=== PATIENT | female | born 2000 | race Caucasian/White ===

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

== ENCOUNTER 2020-04-13 11:56 | Emergency (ER) | payer OTHER, SELFPAY ==
[2020-04-13 12:05] VITALS: BP 121/68; PULSE 77; RESP 14; TEMP 36.6; O2SAT 100
--- NOTE | 2020-04-13 12:16 | ED.URI ---
HPI - URI/Sore Throat General Chief Complaint: Upper Respiratory Infection Stated Complaint: Sinus Infection Source: patient Mode of arrival: ambulatory Limitations: no limitations History of Present Illness HPI Narrative: Patient is a 19-year-old female who presents complaining of upper respiratory symptoms. She reports sinus congestion, rhinorrhea, sore throat and bilateral ear pain x3 days. She does she denies Covid exposure and reports she does not have risks for exposure. She denies taking [id number] medications for pain. She reports a history of sinusitis. MD elicited complaint: sore throat, rhinorrhea, nasal congestion and sinus pain Related Data Allergies Allergy/AdvReac Type Severity Reaction Status Date / Time No Known Allergies Allergy Verified 04/13/20 12:12 Review of Systems Review of Systems: Narrative: CONSTITUTIONAL: Denies fever, chills, or sweats. EYES: Denies visual changes, redness, or discharge. ENT: Reports rhinorrhea, congestion, sore throat, and otalgia. CARDIOVASCULAR: Denies chest pain, palpitations, or edema. RESPIRATORY: Denies cough or dyspnea. GASTROINTESTINAL: Denies abdominal pain, nausea, vomiting, or diarrhea. GENITOURINARY: Denies dysuria or hematuria. SKIN: Denies rash or itching. MUSCULOSKELETAL: Denies back pain, joint pain, or myalgia. NEUROLOGIC: Denies headache, numbness, dizziness, or weakness. PSYCHIATRIC: Denies anxiety or depression. PMFSH Past Medical History Medical History Fracture Seasonal allergies Sinusitis Surgical History Surgical History No significant past surgical history Family History Family History (Updated 04/13/20 @ 12:21 by EFREM Hassan) Other No significant family history Social History Social History (Updated 04/13/20 @ 12:21 by EFREM Hassan) Smoking status: Never smoker Substance use: never Living arrangements: with family Exam Narrative: Exam Narrative: GENERAL: Well-appearing, well-nourished, and in no acute distress. HEAD: Normocephalic, atraumatic. EYES: EOMI. No redness or drainage. Conjunctiva are normal. ENT: Mucous membranes pink and moist. Nares clear. Positive rhinorrhea. Left TM cloudy, full, mildly injected. Throat erythema. Uvula midline. NECK: AROM. Supple. No lymphadenopathy. CHEST: No respiratory distress. MUSCULOSKELETAL: No bony tenderness. EXTREMITIES: Normal range of motion. SKIN: Warm, dry, no rash. NEURO: No focal deficits. Alert and oriented x3. Gait steady. PSYCH: Normal affect. No signs of depression or anxiety. Course Vital Signs Vital signs: Vital Signs Temperature 36.6 C 04/13/20 12:05 Pulse Rate 77 04/13/20 12:05 Respiratory Rate 14 04/13/20 12:05 Blood Pressure 121/68 04/13/20 12:05 Pulse Oximetry 100 04/13/20 12:05 Temperature 36.6 C 04/13/20 12:05 Pulse Rate 77 04/13/20 12:05 Respiratory Rate 14 04/13/20 12:05 Blood Pressure 121/68 04/13/20 12:05 Pulse Oximetry 100 04/13/20 12:05 Reviewed MDM - URI/Sore Throat MDM Narrative Medical decision making narrative: Patient most likely has sinusitis. Patient also showing signs of otitis media and pharyngitis. Discussed with patient course of illness. Discussed follow-up care. Patient is stable for discharge home with outpatient follow-up as needed. Differential Diagnosis Differential diagnosis: Likely upper respiratory infection, otitis media, sinusitis, viral infection and pharyngitis Medical Records Attestation: I reviewed the patient's medical records. Critical Care Time Critical Care Time Critical Care Time: No Discharge Plan Discharge Clinical Impression: Upper respiratory infection, Sinusitis, Pharyngitis Patient Disposition: Home, Self-Care Condition: Stable Instructions: Antibiotic Form Additional Instructions: Take antibiotics as di
== END 2020-04-13 12:31 | disposition home or self-care (01) ==
PROVIDERS: Emergency Provider Nurse Practitioner; PCP Family Medicine
DX: J06.9 Acute upper respiratory infection, unspecified (principal); J32.9 Chronic sinusitis, unspecified; J02.9 Acute pharyngitis, unspecified
CPT/HCPCS: 99213; G0463

== ENCOUNTER 2021-05-13 11:40 | Emergency (ER) | payer OTHER, SELFPAY ==
--- NOTE | ~2021-05-13 | XR_ITS ---
EXAMINATION: XR hand RT min 3V DATE: 05/13/2021 12:01 INDICATION: Swelling at the first metacarpophalangeal joint TECHNIQUE: Posteroanterior, oblique and lateral views of the right hand were obtained. COMPARISON: None. FINDINGS: Alignment is normal. No fracture. Joint spaces are normal. No cortical erosions or periosteal reactio n. Soft tissues are unremarkable with no soft tissue gas or radiopaque foreign bodies. IMPRESSION: 1. Negative left hand radiographs. Reviewed, dictated and finalized at location A. [facility]
[2021-05-13 11:48] VITALS: BP 125/73; PULSE 70; RESP 14; TEMP 37.5; O2SAT 100
--- NOTE | 2021-05-13 12:29 | ED.GENADULT ---
HPI - General Adult General Chief complaint: Extremity Injury, Upper Stated complaint: right hand swollen and painful Source: patient Mode of arrival: ambulatory Limitations: no limitations History of Present Illness HPI narrative: Patient presents for evaluation of pain in the right hand since last night. She cannot identify any precipitating cause or injury. Pain is constant, described as dull at rest and sharp with movement. She rates her pain 6 out of 10 in severity. No loss of range of motion. No paresthesias. No redness or drainage. She has taken ibuprofen with some improvement of her symptoms thereafter. She is right-hand dominant. No additional complaints or concerns Related Data Home Medications Medication Instructions Recorded Confirmed No Home Medications 05/13/21 05/13/21 Allergies Allergy/AdvReac Type Severity Reaction Status Date / Time No Known Allergies Allergy Verified 05/13/21 12:10 Review of Systems Review of Systems: CONSTITUTIONAL: Denies fever, chills, or sweats. EYES: Denies visual changes, redness, or discharge. ENT: Denies rhinorrhea, congestion, sore throat, or otalgia. CARDIOVASCULAR: Denies chest pain, palpitations, or edema. RESPIRATORY: Denies cough or dyspnea. GASTROINTESTINAL: Denies abdominal pain, nausea, vomiting, or diarrhea. GENITOURINARY: Denies dysuria or hematuria. SKIN: Denies rash or itching. MUSCULOSKELETAL: Reports pain and swelling in right hand NEUROLOGIC: Denies headache, numbness, dizziness, or weakness. PSYCHIATRIC: Denies anxiety or depression. [facility] Past Medical History Medical History Fracture Seasonal allergies Sinusitis Surgical History Surgical History No significant past surgical history Family History Family History Other No significant family history Social History Social History Smoking status: Never smoker Alcohol intake: never Substance use: never Living arrangements: with family Gender identity (if verbalized by the patient): Female Sexual Orientation (if Verbalized by the Patient): Straight or Heterosexual Spiritual care concerns: No Exam Narrative: GENERAL: Well-appearing, well-nourished, and in no acute distress. HEAD: Normocephalic, atraumatic. EYES: PERRLA and EOMI. ENT: Nares clear, no rhinorrhea or epistaxis. Mucous membranes moist. Oropharynx without tonsillar hypertrophy exudate or other lesions. Bilateral TMs pearly kearns nonbulging NECK: Supple. No adenopathy or masses. No carotid bruits or JVD CHEST: Clear to auscultation. No respiratory distress. No wheezes rales or rhonchi HEART: Regular rate and rhythm. No murmur heard. Normal peripheral pulses. ABDOMEN: Soft, nontender, nondistended, normal active bowel sounds. EXTREMITIES: Normal range of motion. 5 out of 5 handgrip strength bilaterally. There is tenderness over metacarpals of first and second digits of right hand. I do not appreciate any swelling or deformity present. SKIN: Warm, dry, no rash. NEURO: No focal deficits. Alert and oriented x3. PSYCH: Normal mood and affect. Course Course Emergency Course: This is a 20-year-old female who presented with complaints of right hand pain. I do not appreciate any redness or warmth to suggest cellulitis. I do not appreciate any swelling. There is mild tenderness over first and second metacarpals of the right hand without deformity. She has full range of motion. Seem consistent with tendinitis. Advised on RICE therapy. Ibuprofen for pain. Provided with salvador wrap. Follow-up outpatient for further evaluation and treatment and return for worsening symptoms. Patient in agreement with plan of care. Level of Care: Express Care Visit Vital Signs Vital signs: Vital Sig
== END 2021-05-13 12:53 | disposition home or self-care (01) ==
PROVIDERS: Emergency Provider Nurse Practitioner; PCP Family Medicine
DX: M79.641 Pain in right hand (principal)
CPT/HCPCS: 73130; 99213; G0463

== ENCOUNTER 2021-05-20 17:25 | Emergency (ER) | payer OTHER, SELFPAY ==
[2021-05-20 17:32] VITALS: BP 124/77; PULSE 102; RESP 16; TEMP 38.2; O2SAT 99
--- NOTE | 2021-05-20 17:40 | ED.URI ---
HPI - URI/Sore Throat General Chief Complaint: Upper Respiratory Infection Stated Complaint: Sore Throat Time Seen by Provider: 05/20/21 17:45 Source: patient and RN notes reviewed Mode of arrival: ambulatory Limitations: no limitations History of Present Illness HPI Narrative: 20-year-old female presents concern for sore throat, nasal congestion, rhinorrhea, ear pain, body aches, chills, sweats, fever. Reports taking ibuprofen and sinus medication. She requested a strep test, she refuses a Covid test. She is not been vaccinated for Covid. MD elicited complaint: cough and sore throat Related Data Home Medications Medication Instructions Recorded Confirmed No Home Medications 05/13/21 05/20/21 Allergies Allergy/AdvReac Type Severity Reaction Status Date / Time No Known Allergies Allergy Verified 05/20/21 17:29 Review of Systems Review of Systems: CONSTITUTIONAL: Reports malaise, chills, sweats, or fever. EYES: Denies visual changes, redness, or discharge. ENT: Reports rhinorrhea, congestion, otalgia and sore throat. CARDIOVASCULAR: Denies chest pain, palpitations, or edema. RESPIRATORY: Reports cough. Denies dyspnea. GASTROINTESTINAL: Denies abdominal pain, nausea, vomiting, diarrhea SKIN: Denies rash or itching. MUSCULOSKELETAL: Reports myalgia. NEUROLOGIC: Reports headache. All systems reviewed & are unremarkable except as noted in HPI and below PMFSH Past Medical History Medical History Fracture Seasonal allergies Sinusitis Surgical History Surgical History No significant past surgical history Family History Family History Other No significant family history Social History Social History (Reviewed 05/13/21 @ 12:30 by Tacos Galloway [facility], ) Smoking status: Never smoker Alcohol intake: never Substance use: never Gender identity (if verbalized by the patient): Female Sexual Orientation (if Verbalized by the Patient): Straight or Heterosexual Spiritual care concerns: No Comments At time of signature, agree with nursing past medical, surgical, social and family history. There is no relevant family history pertinent to the presenting complaint Exam Narrative: GENERAL: Nontoxic-appearing, well-nourished, and in no acute distress. HEAD: Normocephalic EYES: PERRLA, conjunctivae clear ENT: Nares clear, clear discharge. Mucous membranes moist. TM pearly kearns with dull light reflex bilaterally; no tragal tenderness. Oropharynx erythematous without lesions. Tonsils not enlarged and without exudate, no drooling, no hoarseness, no trismus, uvula midline. NECK: Supple. No lymphadenopathy CHEST: Clear to auscultation, breath sounds equal. No wheezing, rhonchi, rales, or stridor. No respiratory distress, speaks in full sentences. HEART: Regular rate and rhythm. No murmur heard. SKIN: Warm, dry, no rash. NEURO: Alert and oriented x3. PSYCH: Normal mood and affect Course Course Emergency Course: Mended Covid test patient, patient refuses Covid test. Advised patient that her symptoms are likely contagious and she needs to remain home and quarantine until symptoms resolve Patient is aware of diagnosis, understands and agrees to treatment plan. Anticipatory guidance given. Patient agrees to follow-up as directed and is aware of reasons to seek care at the emergency department. Portions of this record may have been created with voice recognition software Level of Care: Express Care Visit Vital Signs Vital signs: Vital Signs Temperature 100.7 F H 05/20/21 17:32 Pulse Rate 102 H 05/20/21 17:32 Respiratory Rate 16 05/20/21 17:32 Blood Pressure 124/77 05/20/21 17:32 Pulse Oximetry 99 05/20/21 17:32 Temperature 100.7 F H 05/20/21 17:32 Pulse Rate 102 H 05/20/21 17:32 Respiratory Rate 16
== END 2021-05-20 18:02 | disposition home or self-care (01) ==
PROVIDERS: Emergency Provider Nurse Practitioner; PCP Family Medicine
DX: J06.9 Acute upper respiratory infection, unspecified (principal)
CPT/HCPCS: 87081; 87880; 99213; G0463

== ENCOUNTER 2022-03-01 12:01 | Emergency (ER) | payer OTHER, SELFPAY ==
--- NOTE | ~2022-03-01 | XR_ITS ---
XR chest 2V DATE: 03/01/2022 12:43 INDICATION: Cough, congestion TECHNIQUE: PA and lateral views COMPARISON: None FINDINGS: Normal heart size. No hilar or mediastinal enlargement. No pulmonary infiltrate or consolid ation, pleural effusion or pulmonary vascular congestion or pneumothorax. Mild thoracic scoliosis. IMPRESSION: No active cardiopulmonary disease Reviewed, dictated and finalized at location A.
[2022-03-01 12:12] VITALS: BP 141/69; PULSE 87; RESP 14; TEMP 37.2; O2SAT 99
--- NOTE | 2022-03-01 12:47 | ED.GENADULT ---
HPI - General Adult General Chief complaint: Upper Respiratory Infection Stated complaint: Sore Throat/Cough/ Chest Congestion Source: patient Mode of arrival: ambulatory Limitations: no limitations History of Present Illness HPI narrative: Patient presents for evaluation of sick symptoms for the last 5 days. Symptoms include nausea, sore throat, nonproductive cough, and shortness of breath. No fever, vomiting, diarrhea. Her mother recently had respiratory symptoms that she attributes to a viral infection. Those symptoms have improved. No other sick contacts to her knowledge. She does not smoke. No known contraception. No leg swelling. No personal history of DVT or PE. She took a home COVID test which was negative. No personal history of COVID. She has not received COVID vaccination or a flu shot this year. She used a family member's nebulizer treatment last night which seemed to help her symptoms. She also took some NyQuil and Advil cold and Sinus. She is not sure whether those medications helped. No additional complaints or concerns. Related Data Allergies Allergy/AdvReac Type Severity Reaction Status Date / Time No Known Allergies Allergy Verified 03/01/22 12:22 Review of Systems Review of Systems: CONSTITUTIONAL: Denies fever, chills, or sweats. EYES: Denies visual changes, redness, or discharge. ENT: Reports sore throat. Denies rhinorrhea, congestion, or otalgia. CARDIOVASCULAR: Denies chest pain, palpitations, or edema. RESPIRATORY: Reports nonproductive cough and shortness of breath. GASTROINTESTINAL: Reports nausea. Denies abdominal pain, vomiting, or diarrhea. GENITOURINARY: Denies dysuria or hematuria. SKIN: Denies rash or itching. MUSCULOSKELETAL: Denies back pain, joint pain, or myalgia. NEUROLOGIC: Denies headache, numbness, dizziness, or weakness. PSYCHIATRIC: Denies anxiety or depression. [facility] Past Medical History Medical History Fracture Seasonal allergies Sinusitis Surgical History Surgical History No significant past surgical history Family History Family History Mother Family history non-contributory Other No significant family history Social History Social History Smoking status: Never smoker Alcohol intake: never Substance use: never Living arrangements: with family Gender identity (if verbalized by the patient): Female Sexual Orientation (if Verbalized by the Patient): Straight or Heterosexual Spiritual care concerns: No Exam Narrative: GENERAL: Well-appearing, well-nourished, and in no acute distress. HEAD: Normocephalic, atraumatic. EYES: PERRLA and EOMI. ENT: Nares clear, no rhinorrhea or epistaxis. Mucous membranes moist. Oropharynx without tonsillar hypertrophy exudate or other lesions. Bilateral TMs pearly kearns nonbulging NECK: Supple. No adenopathy or masses. No carotid bruits or JVD CHEST: Occasional cough present. Clear to auscultation. No respiratory distress. No wheezes rales or rhonchi HEART: Regular rate and rhythm. No murmur heard. Normal peripheral pulses. ABDOMEN: Soft, nontender, nondistended, normal active bowel sounds. EXTREMITIES: Normal range of motion. No edema. SKIN: Warm, dry, no rash. NEURO: No focal deficits. Alert and oriented x3. PSYCH: Normal mood and affect. Course Course Emergency Course: This is a 21-year-old female who presented for evaluation of sick symptoms. I recommended COVID, influenza, strep testing. She declined all those. Chest x-ray was obtained and was negative. Exam is consistent with acute viral syndrome. Will treat with Tessalon. Increase hydration. Follow up outpatient for further evaluation and treatment and go to the ER for worsening symptoms. Patient in
== END 2022-03-01 13:21 | disposition home or self-care (01) ==
PROVIDERS: Emergency Provider Nurse Practitioner; PCP Family Medicine
DX: B34.9 Viral infection, unspecified (principal)
CPT/HCPCS: 71046; 99213; G0463

== ENCOUNTER 2022-08-28 13:09 | Emergency (ER) | payer OTHER, SELFPAY ==
[2022-08-28 13:17] VITALS: BP 143/80; PULSE 77; RESP 16; TEMP 37.4; O2SAT 100
--- NOTE | 2022-08-28 13:20 | ED.URI ---
HPI - URI/Sore Throat General Chief Complaint: Upper Respiratory Infection Stated Complaint: Sore Throat/Cough/Chest Congestion Source: patient and RN notes reviewed History of Present Illness HPI Narrative: Patient is a 21-year-old female complaining sore throat since Thursday. Patient also endorses a frequent nonproductive cough. She has been experiencing nasal congestion and drainage, along with bilateral ear pain. She denies ear drainage. Unsure fevers or reports recent sweats and chills. She denies chest pain or shortness of breath. Denies difficulty swallowing. She denies recent abdominal pain, nausea, vomiting had diarrhea. Patient states that her family has been sick recently with similar symptoms. Related Data Allergies Allergy/AdvReac Type Severity Reaction Status Date / Time No Known Allergies Allergy Verified 08/28/22 13:15 Review of Systems Review of Systems: Pertinent positives and pertinent negatives per HPI. PMFSH Past Medical History Medical History Fracture Seasonal allergies Sinusitis Surgical History Surgical History No significant past surgical history Family History Family History Mother Family history non-contributory Other No significant family history Social History Social History Smoking status: Never smoker Alcohol intake: never Substance use: never Living arrangements: with family Gender identity (if verbalized by the patient): Female Sexual Orientation (if Verbalized by the Patient): Straight or Heterosexual Spiritual care concerns: No Comments At the time of my signature, I reviewed and agree with the nursing past medical, surgical, social, and family history. There is no relevant family history pertinent to the patient complaint. Exam Narrative: GENERAL: This is a well-nourished, well-developed patient, in no apparent distress. HEAD: normocephalic, atraumatic. EYES: Sclera clear/white. Vision is grossly intact. EARS: External ears normal, auditory canals clear and without drainage, TMs normal without perforation. Hearing grossly intact. NOSE: External nose normal, rhinorrhea and congestion present. THROAT: Mucous membranes moist, oropharygneal erythema without exudate. NECK: Neck supple, non-tender without lymphadenopathy, masses or thyromegaly. CARDIOVASCULAR: Regular rate and rhythm without murmurs, gallops, or rubs. RESPIRATORY: Clear to auscultation. Breath sounds equal bilaterally. No wheezes, rales, or rhonchi. GASTROINTESTINAL: Abdomen soft, non-tender, nondistended. Bowel sounds are active. No hepato-splenomegaly, or palpable masses. No guarding. SKIN: warm, intact with no suspicious lesions or rash, good texture and turgor. NEURO: awake, alert, and oriented to person, place and time. There were no obvious focal neurologic abnormalities. Course Course Level of Care: Express Care Visit Vital Signs Vital signs: Vital Signs Temperature 99.4 F 08/28/22 13:17 Pulse Rate 77 08/28/22 13:17 Respiratory Rate 16 08/28/22 13:17 Blood Pressure 143/80 H 08/28/22 13:17 Pulse Oximetry 100 08/28/22 13:17 Oxygen Delivery Room Air 08/28/22 13:17 Temperature 99.4 F 08/28/22 13:25 Pulse Rate 77 08/28/22 13:25 Respiratory Rate 16 08/28/22 13:25 Blood Pressure 143/80 H 08/28/22 13:25 Pulse Oximetry 100 08/28/22 13:25 Oxygen Delivery Room Air 08/28/22 13:25 Reviewed MDM - URI/Sore Throat MDM Narrative Medical decision making narrative: Viral illness may last between 7-21 days; antibiotics do not cure viral illness and are NOT recommended at this time. Also, recommend symptomatic treatment includes: rest, fluids, and increase humidity of the air at home. Recommend Acetamin
[2022-08-28 13:25] VITALS: BP 143/80; PULSE 77; RESP 16; TEMP 37.4; O2SAT 100
== END 2022-08-28 13:40 | disposition home or self-care (01) ==
PROVIDERS: Emergency Provider Nurse Practitioner Family
DX: B34.9 Viral infection, unspecified (principal)
CPT/HCPCS: 87081; 87880; 99213; G0463